=== PATIENT | female | born 1960 | race Caucasian/White ===

== ENCOUNTER 2017-08-20 19:36 | Emergency (ER) | payer OTHER ==
[~2017-08-20] VITALS: Ht 167.6 cm; Wt 77.1 kg
--- NOTE | 2017-08-20 23:23 | NUR ---
Patient discharged to home in stable conditon. Written and verbal after care instructions given to pt and daughter as well as rx. Patient verbalizes understanding of instructions.
[2017-08-20 23:26] VITALS: BP 115/70
== END 2017-08-20 23:26 | disposition home or self-care (01) ==
LOC: ER 19:36
DX: J20.8 Acute bronchitis due to other specified organisms (principal); B34.9 Viral infection, unspecified; M19.90 Unspecified osteoarthritis, unspecified site; Z96.643 Presence of artificial hip joint, bilateral
CPT/HCPCS: A4663

== ENCOUNTER 2019-05-18 14:50 | Emergency (ER) | payer OTHER ==
[~2019-05-18] VITALS: Ht 160 cm; Wt 77.1 kg
--- NOTE | 2019-05-18 15:05 | NUR ---
PT IS A/OX4, BIB FAMILY [employer], C/O SOB THAT BEGAN 2 DAYS AGO. PT REPORTS GRADUAL ONSET OF SOB THAT WORSENED TODAY. PT PRESENTS W/ LABORED BREATHING BUT SPO2 RANGING 98-100% ON ROOM AIR. VSS. PT DENIES PAIN, C/P, N/V/D, DIZZINESS, HEADACHE.
[2019-05-18] MEDS ORDERED: ASPIRIN 325 MG TABLET PO ONE (15:15)
[2019-05-18 15:22] LABS: BASOPHILS % (AUTO) 0.7 % (0.0-2.0); EOSINOPHILS # (AUTO) 0.2 K/uL (0.0-0.7); EOSINOPHILS % (AUTO) 2.7 % (0.0-7.0); HEMATOCRIT 38.2 % (31.2-41.9); HEMOGLOBIN 12.8 g/dL (10.9-14.3); LYMPHOCYTES # (AUTO) 1.6 K/uL (20.0-40.0); LYMPHOCYTES % (AUTO) 24.8 % (20.5-51.5); MEAN CORPUSCULAR HGB CONC 34 g/dL (32.3-35.6); MEAN CORPUSCULAR VOLUME 86.5 fL (75.5-95.3); MONOCYTES # (AUTO) 0.4 K/uL (2.0-10.0); MONOCYTES % (AUTO) 6.5 % (0.0-11.0); NEUTROPHILS # (AUTO) 4.2 K/uL (1.8-8.9); NEUTROPHILS % (AUTO) 65.3 % (38.5-71.5); PLATELET COUNT (AUTO) 270 K/uL (179-408); RED BLOOD CELL COUNT(AUTO) 4.41 MIL/uL (3.63-4.92); WHITE BLOOD COUNT (AUTO) 6.5 K/uL (3.8-11.8)
[2019-05-18 15:32] LABS: CREATININE 0.7 mg/dL (0.6-1.3)
[2019-05-18 15:45] LABS: BILIRUBIN,DIRECT 0.1 mg/dL (0.0-0.2); BILIRUBIN,TOTAL 0.3 mg/dL (0.2-1.0); TOTAL PROTEIN, SERUM 6.9 g/dL (6.4-8.2)
[2019-05-18] MEDS ORDERED: ASPIRIN 325 MG TABLET ONE (16:08)
--- NOTE | 2019-05-18 16:32 | NUR ---
Patient discharged to home in stable conditon. Written and verbal after care instructions given. Patient verbalizes understanding of instructions. ALL BELONGINGS W/ PT. PT SELF-AMBULATED W/O DIFFICULTY. 20G IV ACCESS IN LAC REMOVED PRIOR TO D/C - INNER CANNULA INTACT.
[2019-05-18 16:35] VITALS: BP 114/76
== END 2019-05-18 16:35 | disposition home or self-care (01) ==
LOC: ER 14:50
DX: R06.09 Other forms of dyspnea (principal); E66.9 Obesity, unspecified; Z68.34 Body mass index [BMI] 34.0-34.9, adult
CPT/HCPCS: 36415; 70030-TC; 71046; 85025; 93005; A4663